=== PATIENT | female | born 1935 | race Caucasian/White ===

== ENCOUNTER 2016-04-06 17:46 | Emergency (ER) | payer MEDICARE ==
[~2016-04-06 17:46] MED LIST: ALLOPURINOL300 MG; LIPITOR40 MG; NAPROSYN500 MG PO; QUINAPRIL20 MG; SYNTHROID0.112 MG
[2016-04-06] MEDS ORDERED: HYDROCODON-ACE118 ML PO (20:19)
[2016-04-29] MEDS ORDERED: CARVEDILOL3.125 MG PO (15:00)
[2016-04-29] MEDS ORDERED: MELOXICAM7.5 MG PO (15:00)
[2016-04-29] MEDS ORDERED: LOVASTATIN10 MG PO (15:00)
[2016-04-29] MEDS ORDERED: COREG3.125 MG PO (16:47)
[2016-04-29] MEDS ORDERED: NORVASC5 MG PO (16:47)
[2016-04-29] MEDS ORDERED: QUINAPRIL20 MG PO (16:47)
== END 2016-04-06 20:18 | disposition home or self-care (01) ==
LOC: ED 17:46
DX: T18.108A Unspecified foreign body in esophagus causing other injury, initial encounter (principal); I10 Essential (primary) hypertension; K22.2 Esophageal obstruction; G89.29 Other chronic pain; M54.5 Low back pain; Y92.9 Unspecified place or not applicable

== ENCOUNTER 2016-12-18 23:19 | Inpatient (IN) | payer MEDICARE ==
[~2016-12-18] VITALS: Ht 160 cm; Wt 64.0 kg
--- NOTE | ~2016-12-18 | PR ---
[place], [place] PROGRESS NOTE NAME: SHARMILA CARRANZA UNIT #: [id number] ROOM: 409 DOCTOR: ERIN SAUL MD BIRTHDATE: [birth year] DOS: SUBJECTIVE: The patient is doing fine without any complaints this morning. She is feeling much better. OBJECTIVE: LUNGS: Diminished breath sounds, clear. HEART: Regular. ABDOMEN: Obese, soft, nontender. EXTREMITIES: Without any edema. ASSESSMENT AND PLAN: 1. Polymyalgia rheumatica, the pain is much better this morning. Rheumatoid panel is negative. Rheumatoid factor slightly positive, but the CCP is normal, so this ruling out rheumatoid arthritis. Echocardiogram shows normal LV function. 2. Chest pain with elevated troponin with negative echocardiogram. 3. Benign hypertension, controlled. I did discuss with the patient about starting physical therapy at home. She agreed, so visiting nurses will be consulted. ERIN SAUL MD CM:PNTRANS 38 ERIN SAUL MD 12/24/16 2238 interface
--- NOTE | ~2016-12-18 | CON ---
[place], [place] REPORT OF CONSULTATION NAME: SHARMILA CARRANZA UNIT #: [id number] ROOM: 409 DOCTOR: LETY CORTEZ,JUNE BIRTHDATE: [birth year] DOS: 12/20/2016 ADDENDUM MEDICATIONS: Include Coreg, Rocephin, ____, Zocor, Celebrex, Zestril, Norvasc, [place]. MONIKA DANA DAVIDSON CRISSY DRAKE MD CM:CONSTR:REPORT OF CONSULTATION 1418 12/31/16 1513 VITA CHEN MIS.R
--- NOTE | ~2016-12-18 | PR ---
[place], [place] PROGRESS NOTE NAME: SHARMILA CARRANZA UNIT #: [id number] ROOM: 409 DOCTOR: ERIN SAUL MD BIRTHDATE: [birth year] DOS: 12/23/2016 SUBJECTIVE: The patient continues to complain of diffuse aches and pains. Denies any chest pains, palpitations or shortness of breath. OBJECTIVE: VITAL SIGNS: Graphic trend shows blood pressure of 170/88, pulse of 72, respirations 20, temperature 98.2. LUNGS: Diminished breath sounds, clear. HEART: Regular. ABDOMEN: Obese, soft. EXTREMITIES: Without any edema. ASSESSMENT AND PLAN: 1. Polymyalgia rheumatica, most likely responsible for current symptoms of low grade fever, diffuse aches and pains, elevated ESR and CRP. The patient has been placed on IV Solu-Medrol. We will discontinue IV and placed on p.o. prednisone of 40 mg daily. Follow with Rheumatology as an outpatient. 2. Failure to thrive with increased weakness. The patient was advised to go to a rehab center, but she has refused. We will go ahead and arrange for discharge tomorrow on p.o. prednisone and PT, OT. 3. Benign hypertension, controlled. Discussed with the patient's daughter, Maggie Moore. ERIN SAUL MD CM:PNTRANS [id number] ERIN SAUL MD 12/23/16 9870 interface
--- NOTE | ~2016-12-18 | PR ---
[place], [place] PROGRESS NOTE NAME: SHARMILA CARRANZA UNIT #: [id number] ROOM: 409 DOCTOR: ERIN SAUL MD BIRTHDATE: [birth year] DOS: 12/22/2016 SUBJECTIVE: The patient continues to complain of diffuse aches and pains. She denies having any chest pains or palpitations, does not have any dizziness or lightheadedness. PHYSICAL EXAMINATION: GENERAL: She is awake and alert and oriented. VITAL SIGNS: Blood pressure is 116/60, pulse of 66, respirations 20, temperature 97.9. LUNGS: Clear. HEART: Regular. ABDOMEN: Obese, soft, nontender. EXTREMITIES: Without any edema. ASSESSMENT AND PLAN: 1. This is a patient who presented with fever and abdominal pain. Urine culture and blood cultures were done, so far no infections can be found. 2. Diffuse myalgias and arthralgias with elevated ESR and CRP, most likely has underlying polymyalgia rheumatica. The patient is placed on IV steroids. 3. Benign hypertension, controlled. 4. Adult failure to thrive. PT/OT has been consulted. We will consider short-term rehab placement. ERIN SAUL MD CM:PNTRANS 27 ERIN SAUL MD 12/23/16 0051 interface
--- NOTE | ~2016-12-18 | PR ---
[place], [place] PROGRESS NOTE NAME[id number] UNIT #: [id number] ROOM: 409 DOCTOR: JASMEET EVANS,JANE BIRTHDATE: [birth year] DOS: 12/21/2016 SUBJECTIVE: The patient is completely flat in bed, continues to feel tired, completely asymptomatic. No specific cardiac complaint, no chest pain, no symptomatic palpitation. OBJECTIVE: VITAL SIGNS: Blood pressure 124/64, heart rate 74, respiratory rate of 14, temperature 98.2. NECK: Good upstroke, no bruit. HEART: S1, S2 with no rub. LUNGS: Clear to auscultation. EXTREMITIES: Lower extremities, no edema. LABORATORY DATA: Sed rate 70, white count 4.1, hemoglobin 12.6. D-dimer was 1.[address] of the chest. CRP of 17. Potassium was not done today. Troponin is still slightly elevated. ASSESSMENT AND PLAN: On presentation what looks like an upper respiratory infection in a patient who is showing a cardiac trend that could be a non-STEMI type 2. The patient though denies any specific cardiac complaint. For that, we would continue to manage her conservatively, especially in view of elevated sed rate and CRP. I agree with Dr. Fleming, who may workup for possible autoimmune disease. We will await the results of the echocardiogram in a.m. For now, I will hold on any further titration of the patient's medication. I will continue with Coreg at 12.5mg 1 tablet p.o. b.i.d. Consider increased activity as noted in my consultation. We will consider ischemic workup later on after patient's recovery from this bout of illness. JANE ALAMO MD CM:PNTRANS [id number] JANE ALAMO MD 01/12/17 0812 interface
--- NOTE | ~2016-12-18 | CON ---
[place], [place] REPORT OF CONSULTATION NAME: SHARMILA CARRANZA UNIT #: [id number] ROOM: 409 DOCTOR: VIDAL EVANS,CRISSY Jaramillo BIRTHDATE: [birth year] DOS: 12/20/2016 ADDENDUM I agree with the above plan as described after reviewing labs, radiographs and microbiology probably the patient clinically and adjust accordingly. CRISSY DRAKE MD CM:CONSTR:REPORT OF CONSULTATION 0417 12/22/16 1320 interface
--- NOTE | ~2016-12-18 | PR ---
[place], [place] PROGRESS NOTE NAME: SHARMILA CARRANZA UNIT #: [id number] ROOM: 409 DOCTOR: ERIN ASUL MD BIRTHDATE: [birth year] DOS: SUBJECTIVE: The patient is complaining of diffuse aches and pains. She does not feel very good at all. She is not able to tell me exactly where the pain is, but states it is all over her body. OBJECTIVE: VITAL SIGNS: Blood pressure is 124/64, pulse of 74, respirations 14, temperature 98.2. LUNGS: Diminished breath sounds, clear. HEART: Regular. ABDOMEN: Obese, soft, nontender this morning. EXTREMITIES: Without any edema. LABORATORY DATA: Urine culture shows no bacterial growth. Rapid flu testing was negative. CT of the abdomen and pelvis was negative. CT of the chest did not show any pneumonia. No other labs available this morning. WBC count yesterday was 4.1. ASSESSMENT AND PLAN: 1. Fever of unknown etiology, possible viral since cultures have all come back negative. 2. Rule out inflammatory process like polymyalgia rheumatica. ESR, CRP have been ordered along with rheumatoid panel. 3. Benign hypertension, controlled. 4. Chronic low back pain from underlying degenerative joint disease. Continue pain medications. No new changes made. ERIN SAUL MD CM:PNTRANS 0725 1507 ERIN SAUL MD 12/21/16 1506 interface
--- NOTE | ~2016-12-18 | DS ---
[place], [place] DISCHARGE SUMMARY NAME: SHARMILA CARRANZA UNIT #: [id number] ROOM: 409 DOCTOR: ERIN SAUL MD BIRTHDATE: [birth year] DOS: 12/24/2016 DIAGNOSES: 1. Polymyalgia rheumatica. The patient to have serial ESR and CRP as an outpatient and adjustments in prednisone will be made. 2. Fever, possibly related to the autoimmune disease. Flu was ruled out. Urine culture was negative. 3. Chronic low back pain, controlled. 4. Benign hypertension. 5. Elevated enzymes. Cardiology consultation was obtained. CT of the chest was negative. Echocardiogram was normal. This is noncardiac. 6. Failure to thrive. The patient to have visiting nurses at home for PT/OT. MEDICATIONS: New prescription given was prednisone 40 mg daily, carvedilol 3.125 twice daily, lovastatin 10 daily, quinapril 20 daily, amlodipine 5 daily, Celebrex 100 mg twice a day, [place] 7.5 q. 4 hours. HOSPITAL COURSE: The patient is very well known to us. an 81-year-old who comes in with complaints of abdominal pain and fever. The patient then started having pain diffusely all over. The patient had a Cardiology consultation as well as Infectious Disease consultation. Initial thought was that this patient had UTI. Cultures were drawn and IV antibiotics were started. Cultures have come back negative. The flu titer was also negative. The patient continued to complain of abdominal pain, back pain and leg pains. Inflammatory workup was initiated. ESR and CRP extremely high, rest of the rheumatoid panel was negative. She was started on high dose of prednisone, which has helped with the pain. She also had slightly elevated troponin with a negative CTA as well as a negative echocardiogram. Classification Control Clerk does not feel this is a cardiac problem involved. The patient is relatively stable after the addition of prednisone. Her pain is much better controlled. The plan is to discharge her to home today to continue PT, OT at home. [place], [place] DISCHARGE SUMMARY NAME: SHARMILA CARRANZA UNIT #: [id number] ROOM: 409 DOCTOR: ERIN SAUL MD BIRTHDATE: [birth year] ERIN SAUL MD CM:LAZ 09 52 ERIN SAUL MD 12/24/161750 interface
--- NOTE | ~2016-12-18 | WRIGHTHP ---
[place], [place] PATIENT HISTORY AND PHYSICAL EXAM NAME: SHARMILA CARRANZA [facility] #: [id number] UNIT #: [id number] ROOM: 409 DOCTOR: ERIN SAUL MD BIRTHDATE: [birth year] DOS: 12/19/2016 HISTORY OF PRESENT ILLNESS: The patient is 81 years old. The patient is very well known to us. The patient states that for the last 3-4 days, she has had cold-like symptoms, runny nose, sinus congestion and just weakness and tiredness. She called the office yesterday. Z-CHARITY was prescribed, but she never got that filled, but she continued to get weak during the night and so her family brought her to the Emergency Room. She also complains of some pain across the lower part of the abdomen and chills. She denies having any abdominal pain, nausea, any emesis. The patient does not have any nausea, emesis or any abdominal pain. Does not have any chest pains or palpitations. PAST MEDICAL HISTORY: Significant for; 1. Chronic back pain. 2. Benign hypertension. 4. Mixed hyperlipidemia. 5. Hypothyroidism. MEDICATIONS: That she is on are; amlodipine 5 daily, Coreg 3.125 twice a day, Celebrex 100 b.i.d., [place] 7.5 q. 4, lovastatin 10, quinapril 20 daily. SOCIAL HISTORY: Nonsmoker, does not use any alcohol. PHYSICAL EXAMINATION: GENERAL: The patient is awake and alert and oriented. VITAL SIGNS: Blood pressure is 120/72, pulse of 74, respirations 20, temperature 103 which is the T-max. LUNGS: Diminished breath sounds. No wheezes, rales or rhonchi heard. HEART: Regular. ABDOMEN: Obese, soft, some tenderness across the suprapubic area. EXTREMITIES: Without any edema, awake and alert and oriented. No neurological deficits. LABORATORY DATA: At the time of admission, chest x-ray which is unremarkable, no evidence of any pneumonia is seen. Serum amylase and lipase was normal. White cell count as WBC count of 4.3, hemoglobin 12.4, hematocrit 35.4, platelets 241. Comprehensive glucose 106, BUN 13, creatinine 0.46, sodium 129, potassium 3.6, chloride 92, bicarbonate 25. ASSESSMENT AND PLAN: 1. Urinary tract infection with possibility of sepsis. Urine culture and blood cultures have been sent in the Emergency Room. The patient has been placed on IV fluids and IV antibiotics. 2. Benign hypertension, controlled. Continue home meds. 3. Chronic back pain. Continue pain medications. [place], [place] PATIENT HISTORY AND PHYSICAL EXAM NAME: SHARMILA CARRANZA UNIT #: [id number] ROOM: [facility] DOCTOR: ERIN SAUL MD BIRTHDATE: [birth year] ERIN SAUL MD CM:HISPHYS:PATIENT HISTORY AND PHYSICAL EXAMINATION 1153 1213 ERIN SAUL MD 01/06/17 0912 interface
--- NOTE | ~2016-12-18 | CON ---
[place], [place] REPORT OF CONSULTATION NAME: SHARMILA CARRANZA UNIT #: [id number] ROOM: 409 DOCTOR: JASMEET EVANSJANE BIRTHDATE: [birth year] DOS: 12/20/2016 REQUESTING PHYSICIAN: Dr. Katy Fleming. REASON FOR CONSULTATION: Elevated troponin. ASSESSMENTS: 1. Current presentation with upper respiratory like symptoms for the past 4 days. 2. Dysuria with evidence of urinary tract infection. 3. Fevers with maximum at 103 on presentation. 4. Elevated troponin with no reported cardiac complaints. 5. Hypertension. 6. Hyperlipidemia. 7. Previous history of tobacco abuse. PLAN: 1. Agree on heparin anticoagulation only for the first 24 hours. 2. Enteric-coated aspirin 81 mg. 3. Increase Coreg to 6.25 mg b.i.d. 4. Echocardiogram. 5. A stress test will be done after the patient recovery from current septic episode. 6. Early followup in our clinic within 2-4 weeks upon discharge. 7. Call at any time for chest pains. HISTORY AND PHYSICAL: The patient is a pleasant 81-year-old female unknown to our practice, was referred by Dr. Fleming for further evaluation of elevated troponin. Apparently, the patient presents to the hospital what looks like an upper respiratory infection even though there was found to have a urinary tract infection. Temperature on presentation was 103. At no time, the patient had any complained of chest pain, chest pressure, heaviness or tightness. No jaw pain, no left arm pain, no back pain. She has been active. She still drives and goes grocery shopping without any provoked cardiac complaints. No shortness of breath. No dyspnea on exertion. Prior to this presentation, she sleeps on one pillow with no reported PND, orthopnea or pedal edema. Never had any dizziness, lightheadedness or near syncope. Maintain good appetite. No weight loss. After elevated troponin, she had negative CT of the chest for PE and also after enteric coated aspirin on the plan, please check CPK and CK-MB. PAST MEDICAL HISTORY: As detailed in my assessment. SOCIAL HISTORY: The patient quit smoking many years ago, but she cannot remember exactly how long ago with no history of alcohol or illicit drug abuse. FAMILY HISTORY: Family history of heart disease given to her father who at age 72 of myocardial infarction. CURRENT MEDICATIONS: Coreg, Tylenol, Rocephin, Celebrex, Zocor, lisinopril and amlodipine. [place], [place] REPORT OF CONSULTATION NAME: SHARMILA CARRANZA UNIT #: [id number] ROOM: [facility] DOCTOR: JANE ALAMO MD BIRTHDATE: [birth year] ALLERGIES: There are no known drug allergies. REVIEW OF SYSTEMS: Currently, the patient denies any headache, diplopia or blurry vision. No fever, no chills, no night sweats. No abdominal pain, no bright red blood per rectum or tarry stools. The patient admits to joint pain, no muscular pain. No anxiety, no depression. No polyuria, no polydipsia, no skin rash. Review of other systems have been negative. PHYSICAL EXAMINATION: GENERAL: The patient is alert, oriented x3, quite pleasant. She is flat in bed, does not appear in distress, reporting significant improvement since admission on current medical regimen. VITAL SIGNS: Blood pressure 126/70, heart rate 76, respiratory rate of 18, temperature 98.2 and T-max is 102.6. HEENT: Extraocular muscles intact. Pupils equal, round and reactive to light. Conjunctivae, no pallor. Throat, no petechiae. NECK: Good carotid upstroke. Unable to appreciate any bruit, no lymphadenopathy, no thyromegaly. HEART: S1, S2 with a systolic ejection murmur on right upper sternal border. No rub, no retrosternal heave, holosystolic murmur at the left lower sternal border. No rub. No retrosternal border. CHEST AND BACK: With deformities. LUNGS: Clear to auscultation. Good air movement. No wheezing or rales. ABDOMEN: Obese, soft, nontender, present bowel sounds, no masses, no bruits. LOWER EXTREMITIES: There is no edema with faint distal pulses. NEUROLOGIC: Grossly nonfocal. SKIN: No significant rash. LABORATORY DATA: EKG showing sinus rhythm, right bundle branch block, left anterior fascicular block. Chest x-ray showing no evidence of any significant infiltrate, slight mild vascular congestion. LABORATORY DATA: White count 4.3, hemoglobin 12.4. INR is 1.0. D-dimer 1.96. Potassium 4.1, BUN 6, creatinine 0.49. GFR more than 60%. Troponin 0.153, 0.16 and 0.12. Albumin 2.4. [place], [place] REPORT OF CONSULTATION NAME: SHARMILA CARRANZA UNIT #: [id number] ROOM: 409 DOCTOR: JANE ALAMO MD BIRTHDATE: [birth year] JANE ALAMO MD CM:CONSTR:REPORT OF CONSULTATION 1129 01/06/17 0920 interface
--- NOTE | ~2016-12-18 | PR ---
[place], [place] PROGRESS NOTE NAME: SHARMILA CARRANZA UNIT #: [id number] ROOM: [facility] DOCTOR: ERIN SAUL MD BIRTHDATE: [birth year] DOS: SUBJECTIVE: The patient during the night developed some chills and rigor and pulse ox dropped and she was transferred to the ICU. D-dimer was elevated at 1.96. Lactic acid was normal. CT angiogram was performed, which showed no evidence of PE. This morning, the patient mostly complains of abdominal pain and groin pain. She does not have any chest pains or palpitations, does not have any nausea, any emesis. She has chronic pain and has been taking her pain medications. OBJECTIVE: GENERAL: Today, she is awake and alert and oriented. VITAL SIGNS: Graphic trend shows blood pressure 118/80, pulse of 89, respirations 20, T-max of 102.6. LUNGS: Diminished breath sounds, clear. HEART: Regular. ABDOMEN: Obese, soft, nontender right now, but the patient states that she gets the tenderness in the groin area in the right lower quadrant at times. EXTREMITIES: Without any edema. LABORATORY DATA: Troponin, the first set was 0.153, the second set is 0.164. Urine culture shows no bacterial growth. CT of the chest shows no evidence of pneumonia or PE. ASSESSMENT AND PLAN: 1. The patient with high grade fever, was admitted with diagnosis of urinary tract infection, but urine culture is negative. Since the patient is having a lot of right lower quadrant abdominal pain, we will go ahead and arrange for a CT of the abdomen and pelvis and ID consult was obtained because of the continued high grade fever. 2. Hypoxemia. This most likely was not a true oxygen drop, but the patient has significant chills and rigor and they were not able to measure the pulse ox properly. Her pulse ox is maintained normal right now. Troponin is of concern. IV heparin protocol was started. I will continue until all troponins come back. A Cardiology consultation will be obtained. An echocardiogram will be ordered. 3. Benign hypertension, controlled. The patient had a stress test about a year ago, which was negative. 4. Chronic pain from osteoarthritis and low back pain. The patient is on pain medications, which are being continued. [place], [place] PROGRESS NOTE NAME: SHARMILA CARRANZA UNIT #: [id number] ROOM: [facility] DOCTOR: ERIN SAUL MD BIRTHDATE: [birth year] ERIN SAUL MD CM:TR[place]ON 0739 1619 ERIN SAUL MD 12/20/16 1618 interface
--- NOTE | ~2016-12-18 | CON ---
[place], [place] REPORT OF CONSULTATION NAME: SHARMILA CARRANZA UNIT #: [id number] ROOM: 409 DOCTOR: LETY CORTEZ,JUNE BIRTHDATE: [birth year] DOS: 12/20/2016 HISTORY OF PRESENT ILLNESS: The patient is a pleasant 81-year-old female who is alert and oriented. She gives a history of having been sick for 2 or 3 days at home with myalgias, fevers, chills, just not feeling well and tired. No respiratory symptoms. No cough. She had slight shortness of breath the night she came in, possibly with her fever. No upper respiratory congestion or drainage. No dysuria or frequency. She was diagnosed with possible UTI upon admission and started on Rocephin. ID was consulted for continued fever. She did have a temperature and chills last night of 102.6. Troponin was also elevated. Her WBCs were normal on admission and currently they are 4.1. Her blood cultures are negative. Urine cultures are negative. Her urinalysis had +2 leukocyte esterase and wbc's 21-30 per high powered field, negative for nitrites. She had CT of the abdomen and pelvis as well as a CT of the chest which did not demonstrate any infiltrates and the abdomen and pelvis had no acute process. PAST MEDICAL HISTORY: As above, as well as chronic back pain, hypertension, hyperlipidemia, hypothyroidism. SOCIAL HISTORY: Lives at home. Nonsmoker, nondrinker. No illicit drug use. CURRENT MEDICATIONS: Include Coreg, Rocephin, aspirin, Zocor, Celebrex, Zestril, Norvasc, [place]. RADIOLOGY AND IMAGING: As reviewed above. I did review the films of the CT of the chest. LABORATORY DATA: WBC is 4.1, platelets 303. BUN 6, creatinine 0.49. LFTs within normal limits. Albumin 2.4. REVIEW OF SYSTEMS: As above in history of present illness. Denies any rash or itch. Apparently, she had temperature of 102.6 at 4:00 a.m., states she did have some chills at night, but was unaware that she had a fever. No cough or shortness of breath. No nausea, vomiting or diarrhea. No dysuria or frequency prior to admission or now. No peripheral edema. Further review of systems is unremarkable. FAMILY MEDICAL HISTORY: Significant for CVA, diabetes and COPD. PHYSICAL EXAMINATION: VITAL SIGNS: Temperature 98.2, pulse 75, respirations 16, BP 114/75. GENERAL: An 81-year-old female, alert and oriented, in no acute distress. HEAD, EYES, EARS, NOSE AND THROAT: Normocephalic. No thrush. LUNGS: Clear to auscultation bilaterally. Respirations even and unlabored. HEART: Regular rhythm. No murmur appreciated. ABDOMEN: Soft, positive bowel sounds, nontender, nondistended. EXTREMITIES: No edema, deformity or cyanosis. SKIN: Warm, dry, free of rashes. [place], [place] REPORT OF CONSULTATION NAME: SHARMILA CARRANZA UNIT #: [id number] ROOM: [facility] DOCTOR: LETY CORTEZJUNE BIRTHDATE: [birth year] ASSESSMENT AND PLAN: Given her fever and myalgias, lack of urinary symptoms, she most likely has influenza. We will do a respiratory viral panel as well as rapid influenza, stop the Rocephin. Case discussed with Dr. Crissy Drake. We will order Tamiflu until the results of her influenza are back. MONIKA DANA DAVIDSON CRISSY DRAKE MD CM:CONSTR:REPORT OF CONSULTATION 1408 12/31/16 1513 interface
[~2016-12-18 23:19] MED LIST changes: +CARVEDILOL3.125 MG PO; +COREG3.125 MG PO; +HYDROCODON-ACE118 ML PO; +LOVASTATIN10 MG PO; +MELOXICAM7.5 MG PO; +NORVASC5 MG PO; +QUINAPRIL20 MG PO
[2016-12-18 23:21] VITALS: BP 129/96
--- NOTE | 2016-12-18 23:28 | NUR ---
PATIENT PO2 90% ROOM AIR PT PLACED ON AT 3LPM VIA NC, PULSE OX 93%
[2016-12-19] VITALS (7 sets, daily range): BP systolic 92–137; BP diastolic 55–79
[2016-12-19 00:08] LABS: HEMATOCRIT 35.4 % (37.0-47.0); HEMOGLOBIN 12.4 g/dl (12.0-16.0); MEAN CELL VOLUME 99.2 fl (81.0-99.0); MEAN CORPUSCULAR HGB 34.7 pg (27.0-31.0); MEAN PLATELET VOLUME 8.7 fl (9.6-12.3); PLATELET COUNT AUTOMATED 241 10*3/uL (130-400); RED BLOOD COUNT 3.57 10*6/uL (4.10-5.10); RED CELL DISTRI WIDTH 12.8 % (0-14.5); WHITE BLOOD COUNT 4.3 10*3/uL (4.8-10.8)
[2016-12-19 00:23] LABS: ALBUMIN 2.6 gm/dl (3.1-4.5); ALKALINE PHOSPHATASE 198 U/L (45-117); BUN 13 mg/dl (7-24); CHLORIDE 92 mmol/L (98-107); CREATININE 0.46 mg/dL (0.55-1.02); POTASSIUM 3.6 mmol/L (3.5-5.1); SGOT/AST 26 IU/L (3-35); SGPT/ALT 22 U/L (12-78); SODIUM 129 mmol/L (136-145)
[2016-12-19 00:31] LABS: PLATELET SUFFICIENCY NORMAL (NORMAL); TOTAL CELLS COUNTED 100 #CELLS
[2016-12-19 00:32] LABS: TOXIC GRANULATION SLIGHT
[2016-12-19 00:39] LABS: LIPASE 66 U/L (73-393)
[2016-12-19] MEDS ORDERED: CELEBREX100 MG PO (01:29)
[2016-12-19] MEDS ORDERED: HYDROCODON-ACE1 EAC1 PO (01:30)
--- NOTE | 2016-12-19 01:31 | NUR ---
PATIENT IN BED STATES NO CHANGE IN PAIN OR DISCOMFORT, BED IN LOWEST POSITON BED RAILS UP X 2 CALL CAMACHO IN REACH
--- NOTE | 2016-12-19 01:32 | NUR ---
PATIENT STILL UNABLE TO GIVE URINE SPECIMEN
--- NOTE | 2016-12-19 02:04 | NUR ---
PATIENT PROVIDED BEDSIDE COMMODE PER REQUEST WAS ABLE TO USE WITH ASSISTANCE MOVING, PT PROVIDED URINE SAMPLE, RETURNED TO BED, BED IN LOWEST POSITION BED RAILS UP X 2 CALL CAMACHO IN REACH
[2016-12-19 02:15] LABS: BILIRUBIN 1+ (NEGATIVE); BLOOD 1+ (NEGATIVE); CLARITY SL CLOUDY (CLEAR); COLOR YELLOW (YELLOW); GLUCOSE NEGATIVE (NEGATIVE); KETONE 1+ (NEGATIVE); LEUKO ESTERASE 2+ (NEGATIVE); NITRITE NEGATIVE (NEGATIVE); SPECIFIC GRAVITY 1.015 (1.005-1.030)
[2016-12-19 02:21] LABS: BACTERIA 2+; EPITHELIAL CELLS 15-20; WBC 21-30 wbc/hpf (0-5)
--- NOTE | 2016-12-19 02:53 | NUR ---
PT TO BE ADMITTED, PT WITH FRAGILE SKIN HOWEVER NO NOTED SKIN TEARS OR WOUNDS ON PT
--- NOTE | 2016-12-19 03:15 | NUR ---
Time: 309 A 81 year old f admitted to 5E under services of DR. KG EVANS,ERIN. Pt. arrived via bed from ER. Chief complaint: groin/pelvic pain x 3 days. BARRETT WOODS
[2016-12-19] MEDS ORDERED: Synthroid,Levo88 MCG PO (03:41)
--- NOTE | 2016-12-19 03:45 | NUR ---
dr dixon contacted, admission orders received
--- NOTE | 2016-12-19 06:00 | NUR ---
slept throughout night with no distress noted. respirations easy. iv fluids maintained. call light within reach. no voiced complaints this shift
--- NOTE | 2016-12-19 08:29 | NUR ---
Shift chart check completed.
--- NOTE | 2016-12-19 08:30 | NUR ---
Charge Coordinator in to talk to patient. Patient states lives at HOME ALONE with . There are 0 steps in the home. Physician: DR SAUL Pharmacy: [facility] services: NONE Patient's level of ADLs: MINIMAL ASSIST Patient has working utilities: YES DME: NONE Follow-up physician's appointment after d/c: PREFERS TO MAKE HER OWN APPT Does patient want to access PORTAL?: Discharge plan HOME. JENIFER MARTIN STATES SON AND DAUGHTER LIVE NEAR AND ARE VERY HELPFUL.
--- NOTE | 2016-12-19 10:46 | NUR ---
COMPLAINS OF GENERALIZED PAIN, NORCO GIVEN. SEE MAR. WILL MONITOR FOR EFFECTIVENESS.
--- NOTE | 2016-12-19 11:11 | NUR ---
PT DID NOT WANT AM DOSE OF CELEBREX SHE LIKES TO TAKE FIRST THING IN THE MORNING AND WITH DINNER. PHARMACY SENT MESSAGE TO CHANGE ORDER. PT DID NOT WANT TO TAKE AT THE SAME TIME THE NORCO.
[2016-12-20] VITALS (7 sets, daily range): BP systolic 114–150; BP diastolic 70–90
--- NOTE | 2016-12-20 03:33 | NUR ---
RAPID REPSONSE CALLED D/T O2 AT 57%, PT AA&OX3 AT THIS TIME, PT PLACED ON NON REBREATHER PULSE OX AT 97%, AXILLARY TEMP 100.1. AND AT BEDSIDE, LABS ORDERED, STAT CHEST XRAY ORDERED AND EKG. PT IN STABLE CONIDITION. NOTIFIED OF PT'S CONDITION, NEW ORDER TO TRANSFER TO ICU
--- NOTE | 2016-12-20 04:15 | NUR ---
PT RECEIVED IN ICU POST RAPID RESPONSE. PT AWAKE, ALERT, ORIENTED. WITHOUT DISTRESS.
[2016-12-20 04:25] LABS: HEMATOCRIT 37.8 % (37.0-47.0); HEMOGLOBIN 12.6 g/dl (12.0-16.0); MEAN CORPUSCULAR HGB 34.7 pg (27.0-31.0); MEAN CORPUSCULAR HGB CONC 33.3 g/dl (33.0-37.0); MEAN PLATELET VOLUME 8.9 fl (9.6-12.3); PLATELET COUNT AUTOMATED 303 10*3/uL (130-400); RED BLOOD COUNT 3.63 10*6/uL (4.10-5.10); RED CELL DISTRI WIDTH 13.2 % (0-14.5); WHITE BLOOD COUNT 4.1 10*3/uL (4.8-10.8)
[2016-12-20 04:26] LABS: MEAN CELL VOLUME 104.1 fl (81.0-99.0)
[2016-12-20 04:38] LABS: ALBUMIN 2.4 gm/dl (3.1-4.5); ALKALINE PHOSPHATASE 181 U/L (45-117); BUN 6 mg/dl (7-24); CHLORIDE 100 mmol/L (98-107); CREATININE 0.49 mg/dL (0.55-1.02); POTASSIUM 4.1 mmol/L (3.5-5.1); SGOT/AST 35 IU/L (3-35); SGPT/ALT 29 U/L (12-78); SODIUM 135 mmol/L (136-145); TOTAL PROTEIN 7.3 gm/dL (6.4-8.2)
[2016-12-20 04:40] LABS: TOTAL CELLS COUNTED 100 #CELLS
[2016-12-20 04:41] LABS: PLATELET SUFFICIENCY NORMAL (NORMAL)
[2016-12-20 04:43] LABS: TROPONIN I 0.153 ng/ml (<0.045)
[2016-12-20 04:45] LABS: BURR CELLS FEW; TOXIC GRANULATION SLIGHT
--- NOTE | 2016-12-20 04:45 | NUR ---
DR ROY NOTIFIED OF ELEVATED TROPONIN AND D DIMER TESTING THAT WAS ORDERED AND DRAWN DURING RAPID RESPONSE.
--- NOTE | 2016-12-20 05:04 | NUR ---
DR SAUL NOTIFIED OF PT CONDITION, ELEVATED TROPONIN, CXR RESULTS, AND DDIMER RESULTS. AWARE THAT DR ROY ORDERED CTA AND SHE IS AGREEABLE. TYLENOL GIVEN ORDERED FOR TEMP 102.6. ADDITIONAL TROPONINS AND ANTICOAGULATION ORDERS RECEIVED. DR ROY REMAINS AT BEDSIDE.
--- NOTE | 2016-12-20 05:41 | NUR ---
PT WAS ACCOMPANIED BY THIS RN TO CT SCAN FOR CTA AND IS BACK NOW. HR REMAINS 80S, PULSE OX 98%, RR 21/MIN. TOLERATED WELL.
[2016-12-20 05:53] LABS: ACT PARTIAL THROMBO TIME 27.4 SECONDS (20.8-31.5)
--- NOTE | 2016-12-20 10:51 | NUR ---
CT ABD COMPLETED DTR AT BEDSIDE THIRD TRO CALLED TO DR SAUL
[2016-12-20 11:37] LABS: CKMB 1.1 ng/ml (0.5-3.6)
--- NOTE | 2016-12-20 13:05 | NUR ---
NORCO EFFECTIVE FOR BODY/MUSCLE ACHES PT UP TO BSC SEVERAL TIMES CT PREP HAS GONE THRU HER PT SOMEWHAT IN BETTER SPIRITS AND WILLING TO GET UP MORE DR ALAMO HAS SEEN PT AND IMPLIMENTED NEW ORDERS
--- NOTE | 2016-12-20 14:46 | NUR ---
BACK TO BED AFTER EATING LUNCH IN THE RECLINER
--- NOTE | 2016-12-20 16:55 | NUR ---
SERENE FOR GENERALIZED BACK/JOINT PAIN
--- NOTE | 2016-12-20 19:01 | NUR ---
24 HR chart check completed.
[2016-12-21] VITALS: BP 150/84
--- NOTE | 2016-12-21 00:09 | NUR ---
C/O 6/10 PAIN ALL OVER/MUSCLE PAIN. MEDICATED WITH PRN NORCO ORDERED AND PER PATIENT REQUEST. WILL MONITOR FOR EFFECTIVENESS.
--- NOTE | 2016-12-21 01:00 | NUR ---
PATIENT ASLEEP. NO SIGNS OF PAIN. NORCO EFFECTIVE.
[2016-12-21 04:00] VITALS: BP 124/64
--- NOTE | 2016-12-21 05:56 | NUR ---
NORCO GIVEN PER PATIENT REQUEST. C/O 09/15 LOWER BACK PAIN.
--- NOTE | 2016-12-21 06:53 | NUR ---
PATIENT ASLEEP. NO SIGNS OF PAIN. NORCO EFFECTIVE.
[2016-12-21 08:00] VITALS: BP 152/84
[2016-12-21 12:00] VITALS: BP 119/61
--- NOTE | 2016-12-21 14:52 | NUR ---
MEDICATED WITH NORCO FOR /CO LOWR BACK PAIN. PATIENT ENCOURAGED TO STAY IN THE CHAIR UNTIL AT LEAST 4PM. EXPLAINED NEED TO GET OUT OF BED TO PREVENT PNEUMONIA.
[2016-12-21 16:00] VITALS: BP 151/74
--- NOTE | 2016-12-21 16:00 | NUR ---
PT RESTING UP IN CHAIR, NO APPARENT DISTRESS. PT STATES GENERALIZED ACHING AND "JUST DOESN'T FEEL WELL". PT DENIES ANY NEEDS AT THIS TIME. CALL LIGHT WITHIN REACH.
[2016-12-21 20:00] VITALS: BP 153/81
--- NOTE | 2016-12-21 20:15 | NUR ---
PT RESTING QUIETLY IN BED. ASSISTED TO BATHROOM VIA WALKER. PT STATES THAT PRN NORCO WAS BEGINNING TO BECOME EFFECTIVE FOR PAIN RELIEF. RATES PAIN 5/10 WITH MOVEMENT ONLY. PT CONTINUES TO HAVE GENERAL WEAKNESS. ASSISTED BACK TO BED. CALL LIGHT IN REACH.
[2016-12-22] VITALS: BP 145/64
--- NOTE | 2016-12-22 01:35 | NUR ---
PT RESTING QUIETLY IN BED AT THIS TIME. PRN PAIN MED EFFECTIVE FOR PAIN RELIEF.
--- NOTE | 2016-12-22 01:36 | NUR ---
24 HR chart check completed.
[2016-12-22 08:00] VITALS: BP 150/76; BP 168/80
--- NOTE | 2016-12-22 11:01 | NUR ---
PHYSICAL THERAPY PAtient evalauted on 4, full evalaution to follow. Continue with PT as per plan of care with fall, acute onset hip/groin and thigh pain and acute debility precautions. Qualifies for SNF but adamantly refuses. Will require 24/ family assist prn at home and complete home health services. PAtient is moderate complexity via chart review, tests and evaluation: 20881. thank you for this referral. Yolanda Julien,PT
--- NOTE | 2016-12-22 11:38 | NUR ---
Received order for snf, discussed this with daughter Maggie LIANG, who stated patient will not be going to snf, she will be going home. She has family support.
[2016-12-22 12:00] VITALS: BP 168/78
--- NOTE | 2016-12-22 12:26 | NUR ---
PHYSICAL THERAPY Nohemy seen this PM 1:1 for her therapy session and said that she would try. Pt with acute debility precautions. Transfer sit/stand MOD A X 1, with standing balance with wheeled walker. Gait 60' X 1, MOD WEBLOGIC ADMINISTRATOR X 1, with W/W, cueing for gait safety and her turns Pt back up in her bedside chair sitting rest, HR 80 BPM. End with act Ex to bilateral LE X 12 reps each with rest as needed and cueing for each Ex. Pt having C/O hip and along bilateral IT ban. Went over with Pt on her gait safety and transfers. Pt up in her bedside chair call light and phone lunch coming in . KATERIN PHILLIPS PLASTIC SURGERY SPECIALIST.
--- NOTE | 2016-12-22 13:52 | NUR ---
NORCO GIVEN FOR C/O GENERALIZED DISCOMFORT. WILL MONITOR.
[2016-12-22 16:00] VITALS: BP 158/76
--- NOTE | 2016-12-22 16:51 | NUR ---
prn pain med given for 7/10 generalized body aches.
--- NOTE | 2016-12-22 17:44 | NUR ---
PRN PAIN MED EFFECTIVE, PT REPORTS HER PAIN 5/10.
[2016-12-22 20:00] VITALS: BP 164/86
--- NOTE | 2016-12-22 21:11 | NUR ---
MEDICATED WITH PRN NORCO ORDERD FOR C/O GROIN/LEG/AND ARM MUSCLE PAIN RATED AN 8
--- NOTE | 2016-12-22 22:15 | NUR ---
NORCO EFFECTIVE PER PATIENT FOR BODY AND MUSCLE ACHES
[2016-12-23] VITALS: BP 146/62
--- NOTE | 2016-12-23 01:38 | NUR ---
MEDICATED WITH PRN NORCO ORDERED FOR BODY/MUSCLE ACHES AND PAINS RATED AN 8
--- NOTE | 2016-12-23 05:48 | NUR ---
MEDICATED WITH PRN NORCO ORDERED FOR C/O MUSCLE AND BODY ACHES AND PAINS RATED AN 8
[2016-12-23 08:00] VITALS: BP 158/72
--- NOTE | 2016-12-23 08:00 | NUR ---
PATIENT RESTING IN BED. ADMITS TO MUSCLE PAIN ONLY WITH MOVEMENT. STATES THAT THE NORCO SHE RECEIVED THIS MORNING HAS HELPED. VOICES NO OTHER COMPLAINTS. BED IS IN LOW POSITION. CALL LIGHT IS WITHIN REACH.
--- NOTE | 2016-12-23 08:47 | NUR ---
Shift chart check completed.
--- NOTE | 2016-12-23 09:03 | NUR ---
PHYSICAL THERAPY Pt seen this AM and ask to be seen later today. KATERIN PHILLIPS CREDIT PORTFOLIO ADVISOR.
[2016-12-23 09:06] LABS: RHEUMATOID ARTHRITIS FACTOR 14.1 IU/mL (0.0-13.9)
--- NOTE | 2016-12-23 09:33 | NUR ---
NORCO 5/325 GIVEN PER PATIENT REQUEST FOR MUSCLE PAIN RATING AN 8/10.
--- NOTE | 2016-12-23 10:18 | NUR ---
DAUGHTER REQUESTS BSC AND ITZEL TREJO. CHOOSED [facility]. SPOKE WITH ANANT THERE. PAPERWORK AND ORDERS FAXED. ANANT WILL LET ME KNOW IF MEDICARE WILL PAY FOR BOTH AND IF NOT, WHICH ONE IS CHEAPEST FOR FAMILY TO BUY.
--- NOTE | 2016-12-23 10:26 | NUR ---
PHYSICAL THERAPY Back this AM to treat Nohemy, Pt was up in her bedside chair, daughter present. Transfer sit/stand and up on wheeled walker for standing balance CG X 1, no LOB. Followed by gait 95' X 2, CG X 1, no LOB and little cueing for gait, walker, turn safety. Pt back up in her bedside chair, followed by act ex to bilateral LE working to pt's tolerance of marching, LAQ's, and ankle pumps. Pt with phone and call light with slight C/O low back pain. KATERIN PHILLIPS FLUID PUMP OPERATOR.
--- NOTE | 2016-12-23 10:30 | NUR ---
NO COMPLAINTS OF PAIN AT THIS TIME. NORCO EFFECTIVE.
[2016-12-23 12:00] VITALS: BP 170/88
--- NOTE | 2016-12-23 12:05 | NUR ---
PER ANANT FROM [facility], THERE IS A COPAY ON THE WALKER AND MEDICARE WILL NOT PAY FOR THE BSC. SHE WILL CALL PT'S DAUGHTER WITH COPAY INFO AND COST OF BSC.
[2016-12-23 13:08] LABS: ANTI-DSDNA ANTIBODIES 096339 <1 IU/mL (0-9)
--- NOTE | 2016-12-23 13:19 | NUR ---
NORCO 5/325 GIVEN PER PATIENT REQUEST FOR GENERALIZED PAIN RATING AN 8/10.
--- NOTE | 2016-12-23 14:00 | NUR ---
NORCO EFFECTIVE PER PATIENT.
[2016-12-23 16:00] VITALS: BP 173/84
--- NOTE | 2016-12-23 17:07 | NUR ---
NORCO 5/325 GIVEN PER PATIENT REQUEST FOR GENERALIZED PAIN.
[2016-12-23 20:00] VITALS: BP 184/83
[2016-12-23 20:10] VITALS: BP 160/88
[2016-12-23 22:04] LABS: CCP ANTIBODIES IGG/IGA 3 units (0-19)
--- NOTE | 2016-12-23 22:15 | NUR ---
PT RESTING QUIETLY IN BED. NO FURTHER C/O PAIN VOICED. PAIN MED EFFECTIVE FOR PAIN RELIEF.
[2016-12-24] VITALS: BP 147/73
--- NOTE | 2016-12-24 03:00 | NUR ---
PT STATES THAT PAIN MED WAS EFFECTIVE FOR PAIN RELIEF.
[2016-12-24 04:05] LABS: ADENOVIRUS Negative (Negative); INFLUENZA A Negative (Negative); INFLUENZA B Negative (Negative); METAPNEUMOVIRUS Negative (Negative); PARAINFLUENZA 1 Negative (Negative); PARAINFLUENZA 2 Negative (Negative); PARAINFLUENZA 3 Negative (Negative); RHINOVIRUS Negative (Negative); RSV A Negative (Negative); RSV B Negative (Negative)
[2016-12-24 08:00] VITALS: BP 130/82
--- NOTE | 2016-12-24 08:00 | NUR ---
PATIENT IS ALERT AND ORIENTED X 3. RESPITATIONS EASY ON ROOM AIR. LUNGS ARE CLEAR. DENIES COUGH. NORMOACTIVE BOWEL SOUNDS. DENIES N/V/D. LAST BM WAS TODAY. NO EDEMA NOTED. PATIENT SITTING ON THE SIDE OF THE BED. ADMITS TO MUSCLE PAIN. PATIENT MEDICATED BY STUDENT. PATIENT IS BEING CARED FOR BY [employer] STUDENT.
[2016-12-24] MEDS ORDERED: PREDNISONE20 M1 PO (09:07)
--- NOTE | 2016-12-24 10:48 | NUR ---
PHYSICAL THERAPY Nohemy seen this AM 1:1 for her therapy session and had a good morning. Transfer sit/stand CG X 1. Gait with wheeled walker 215' X 1, CGA X 1 no LOB. Pt back up in her bedside chair followed by going over act Ex to bilateral LE of marching, LAQ's, ankle pumps with improvement. KATERIN PHILLIPS COPS.
--- NOTE | 2016-12-24 11:48 | NUR ---
Patient is being discharged to home with home health via [facility]. Faxed order and clincals.
[2016-12-24 12:00] VITALS: BP 148/72
--- NOTE | 2016-12-24 12:07 | NUR ---
NORCO 5/325 GIVEN PER PATIENT REQUEST FOR MUSCLE PAIN RATING AN 8/10.
--- NOTE | 2016-12-24 14:45 | NUR ---
Discharge instructions reviewed with patient/family. Patient receptive and verbalizes understanding. Follow-up care arranged. Written instructions given to patient/family. [place] REMOVED INTACT. MONITOR REMOVED. PATIENT WAS DISCHARGED BY WHEELCHAIR IN CARE OF DAUGHTER. FABIEN HOSKINS
--- NOTE | 2016-12-24 15:01 | NUR ---
PHYSICAL THERAPY CO-SIGN I approve of the Phyical Therapy notes written above. ANDRES NICK PT
== END 2016-12-24 14:45 | disposition home health service (06) | DRG 546 ==
LOC: ED 23:19 → EDHOLD 12-19 02:40 → 4E 12-19 02:40 → 5E 12-19 02:40 → ICCU 12-20 04:41 → 4E 12-21 14:43
PROVIDERS: Emergency Medicine; Internal Medicine; Internal Medicine Cardiovascular Disease; Nurse Practitioner; ADMIT Internal Medicine
DX: M35.3 Polymyalgia rheumatica (principal); R65.10 Systemic inflammatory response syndrome (SIRS) of non-infectious origin without acute organ dysfunction; I35.0 Nonrheumatic aortic (valve) stenosis; N39.0 Urinary tract infection, site not specified; R74.8 Abnormal levels of other serum enzymes; R31.9 Hematuria, unspecified; G89.29 Other chronic pain; I10 Essential (primary) hypertension; M19.90 Unspecified osteoarthritis, unspecified site; M54.5 Low back pain; E78.2 Mixed hyperlipidemia; E03.9 Hypothyroidism, unspecified; R09.02 Hypoxemia; R62.7 Adult failure to thrive; Z53.29 Procedure and treatment not carried out because of patient's decision for other reasons; Z83.3 Family history of diabetes mellitus; Z82.5 Family history of asthma and other chronic lower respiratory diseases; Z82.3 Family history of stroke; Z87.891 Personal history of nicotine dependence; Z82.49 Family history of ischemic heart disease and other diseases of the circulatory system

== ENCOUNTER 2017-01-28 12:56 | Emergency (ER) | payer MEDICARE ==
[~2017-01-28] VITALS: Ht 160 cm; Wt 60.8 kg
[~2017-01-28 12:56] MED LIST changes: +CELEBREX100 MG PO; +HYDROCODON-ACE1 EAC1 PO; +PREDNISONE20 M1 PO; +Synthroid,Levo88 MCG PO
[2017-01-28] MEDS ORDERED: NORCO 5-325 TA1 EACH PO (14:18)
[2017-01-28] MEDS ORDERED: NAPROSYN500 MG PO (14:18)
== END 2017-01-28 14:27 | disposition home or self-care (01) ==
LOC: ED 12:56
DX: S52.502A Unspecified fracture of the lower end of left radius, initial encounter for closed fracture (principal); W18.40XA Slipping, tripping and stumbling without falling, unspecified, initial encounter; Y93.89 Activity, other specified; Y92.89 Other specified places as the place of occurrence of the external cause; Y99.8 Other external cause status

== ENCOUNTER → 2018-04-15 | Outpatient (CLI) | payer MEDICARE ==
[~2018-04-15] MED LIST changes: +NORCO 5-325 TA1 EACH PO
[2018-04-15 19:46] LABS: BASO # 0.1 10*3/uL (0.0-0.1); BASO % 0.7 % (0.0-1.0); EOS # 0.2 10*3/uL (0.0-0.4); EOS % 2.4 % (1.0-4.0); HEMATOCRIT 43.6 % (37.0-47.0); HEMOGLOBIN 15.1 g/dl (12.0-16.0); LYMPH # 1.6 10*3/uL (1.3-4.4); LYMPH % 22.7 % (27.0-41.0); MEAN CELL VOLUME 100.5 fl (81.0-99.0); MEAN CORPUSCULAR HGB 34.8 pg (27.0-31.0); MEAN CORPUSCULAR HGB CONC 34.6 g/dl (33.0-37.0); MEAN PLATELET VOLUME 8.3 fl (9.6-12.3); MONO # 0.6 10*3/uL (0.1-1.0); MONO % 8.6 % (3.0-9.0); NEUT # 4.7 10*3/uL (2.3-7.9); NEUT % 65.2 % (47.0-73.0); PLATELET COUNT AUTOMATED 364 10*3/uL (130-400); RED BLOOD COUNT 4.34 10*6/uL (4.10-5.10); RED CELL DISTRI WIDTH 13.2 % (0-14.5); WHITE BLOOD COUNT 7.1 10*3/uL (4.8-10.8)
[2018-04-15 20:19] LABS: ALBUMIN 3.6 gm/dl (3.1-4.5); ALKALINE PHOSPHATASE 77 U/L (45-117); BUN 8 mg/dl (7-24); CHLORIDE 99 mmol/L (98-107); CHOLESTEROL 235 mg/dL (<200); CREATININE 0.61 mg/dL (0.55-1.02); FREE T4 1.29 ng/dl (0.76-1.46); HDL CHOLESTEROL 71 mg/dl (40-60); LDL CHOLESTEROL 107 mg/dL (9-159); POTASSIUM 4.4 mmol/L (3.5-5.1); SGOT/AST 14 IU/L (3-35); SGPT/ALT 16 U/L (12-78); SODIUM 137 mmol/L (136-145); TOTAL PROTEIN 7.6 gm/dL (6.4-8.2); TRIGLYCERIDES 285 mg/dl (<150); VLDL CHOLESTEROL 57 mg/dL (6-40)
[2018-04-15 20:24] LABS: THYROID STIM HORMONE (HS) 0.925 uIU/ml (0.358-4.75)
[2018-04-15 21:46] LABS: VITAMIN D, 25-HYDROXY 16.6 ng/mL (30-100)
== END | disposition home or self-care (01) ==
LOC: LAB 19:22
PROVIDERS: Internal Medicine
DX: Z13.1 Encounter for screening for diabetes mellitus (principal); Z13.21 Encounter for screening for nutritional disorder; D51.0 Vitamin B12 deficiency anemia due to intrinsic factor deficiency; E55.9 Vitamin D deficiency, unspecified; Z79.899 Other long term (current) drug therapy

== ENCOUNTER 2018-08-05 11:58 | Inpatient (IN) | payer MEDICARE ==
[~2018-08-05] VITALS: Ht 162.5 cm; Wt 62.4 kg
--- NOTE | ~2018-08-05 | PR ---
[place], [place] PROGRESS NOTE NAME: SHARMILA CARRANZA UNIT #: [id number] ROOM: 402 DOCTOR: ERIN SAUL MD BIRTHDATE: [birth year] DOS: 08/07/2018 SUBJECTIVE: The patient says that she had a rough night because of coughing, but she is not having any complaints this morning. OBJECTIVE: VITAL SIGNS: Blood pressure is 149/83, pulse of 67, respirations 16, temperature 98.2. LUNGS: Diminished breath sounds. Very few fine wheezes heard, which is an improvement since admission. HEART: Regular. ABDOMEN: Soft. EXTREMITIES: Without any edema. ASSESSMENT AND PLAN: 1. Acute asthmatic bronchitis, on maximal treatment and improvement is slow, but there is progress. 2. Acute hypoxic respiratory failure, on oxygen supplementation. Awaiting exercise oximetry to assess for home O2. 3. Large aortic aneurysm, the office to make an appointment for her to see CT surgery for aneurysm repair in [facility]. ERIN SAUL MD CM:PNTRANS [phone] ERIN SAUL MD 08/08/18 0138 interface
--- NOTE | ~2018-08-05 | PR ---
[place], [place] PROGRESS NOTE NAME: SHARMILA CARRANZA UNIT #: [id number] ROOM: 402 DOCTOR: ERIN SAUL MD BIRTHDATE: [birth year] DOS: 08/07/2018 SUBJECTIVE: The patient is feeling better, does not have any new complaints. She did have assessment of home O2 when she did not desaturate. Her cough is improved. Shortness of breath is better. OBJECTIVE: VITAL SIGNS: Blood pressure is 148/70, pulse of 89, respirations 20, temperature 98.3. LUNGS: Diminished breath sounds, clear. HEART: Regular. ABDOMEN: Soft. EXTREMITIES: Without any edema. ASSESSMENT AND PLAN: 1. Acute asthmatic bronchitis. The patient's bronchospasm has resolved. 2. Acute hypoxic respiratory failure. Saturations have improved and is up to normal. 3. Benign hypertension, controlled. 4. Thoracic aortic aneurysm, for consultation as an outpatient. ERIN SAUL MD CM:PNTRANS [phone] ERIN SAUL MD 08/08/18 [id number] interface
--- NOTE | ~2018-08-05 | DS ---
[place], [place] DISCHARGE SUMMARY [id number] UN[facility] #: [id number] ROOM: 402 DOCTOR: ERIN SAUL MD BIRTHDATE: [birth year] DOS: DIAGNOSES: 1. Acute asthmatic bronchitis, resolved. 2. Acute hypoxic respiratory failure, improved. HOSPITAL COURSE: The patient is an 83-year-old, very well known to us, who comes in with complaints of cough and shortness of breath. She was admitted to the hospital, was placed on IV antibiotics, breathing treatments. Chest x-ray and CT scan were ordered, which showed no evidence of pneumonia. Her cough and shortness of breath have subsided and therefore, the plan is to discharge her home today. Her oxygenation has improved and assessment of home O2 was performed, which shows that she did not desaturate on walking. The patient will be followed up as an outpatient. She does have a large thoracic aortic aneurysm, which she will need to be followed by CT surgery, appointment will be arranged in [facility]. DISCHARGE MEDICATIONS: The patient's medications are doxycycline 100 mg twice daily, prednisone 5 b.i.d. and breathing treatments with DuoNeb q. 4. ERIN SUAL MD CM:LAZ [phone] ERIN SAUL MD 08/08/18 1521 interface
[2018-08-05 12:20] VITALS: BP 162/88
--- NOTE | 2018-08-05 12:20 | NUR ---
A 83, admitted to , under the services of ERIN Toribio MD with a diagnosis of PNEUMONIA. Chief complaint is SOB, PROD COUGH X1 WEEK. [place] Monitor applied. Initial assessment completed. Vital signs taken and recorded. ERIN TORIBIO MD notified of admission to the unit. Orders received. See assessment for past medical history, medications and allergies. Patient and/or family oriented to unit. [facility] visitation policy reviewed. Clothing/patient valuable form completed. YAAKOV LANGFORD
[2018-08-05] MEDS ORDERED: QUINAPRIL20 MG PO (13:04)
[2018-08-05] MEDS ORDERED: CARVEDILOL6.25 MG PO (13:05)
[2018-08-05] MEDS ORDERED: ALLOPURINOL300 MG PO (13:06)
[2018-08-05] MEDS ORDERED: LEVOXYL88 MCG PO (13:08)
[2018-08-05] MEDS ORDERED: HYDROCODONE-AC1 EAC2 PO (13:10)
[2018-08-05] MEDS ORDERED: MELOXICAM7.5 MG PO (13:13)
[2018-08-05 14:50] LABS: BASO % 0.4 % (0.0-1.0); EOS # 0.2 10*3/uL (0.0-0.4); EOS % 2.6 % (1.0-4.0); HEMATOCRIT 44.8 % (37.0-47.0); HEMOGLOBIN 14.9 g/dl (12.0-16.0); LYMPH # 1.6 10*3/uL (1.3-4.4); LYMPH % 19.9 % (27.0-41.0); MEAN CELL VOLUME 103.5 fl (81.0-99.0); MEAN CORPUSCULAR HGB 34.4 pg (27.0-31.0); MEAN CORPUSCULAR HGB CONC 33.3 g/dl (33.0-37.0); MEAN PLATELET VOLUME 8.9 fl (9.6-12.3); MONO # 0.7 10*3/uL (0.1-1.0); MONO % 9.2 % (3.0-9.0); NEUT # 5.5 10*3/uL (2.3-7.9); NEUT % 67.5 % (47.0-73.0); PLATELET COUNT AUTOMATED 294 10*3/uL (130-400); RED BLOOD COUNT 4.33 10*6/uL (4.10-5.10); RED CELL DISTRI WIDTH 12.6 % (0-14.5); WHITE BLOOD COUNT 8.1 10*3/uL (4.8-10.8)
[2018-08-05 15:03] LABS: BUN 7 mg/dl (7-24); CHLORIDE 96 mmol/L (98-107); CREATININE 0.59 mg/dL (0.55-1.02); POTASSIUM 4.3 mmol/L (3.5-5.1); SODIUM 132 mmol/L (136-145)
--- NOTE | 2018-08-05 15:33 | NUR ---
MEDICATED WITH NORCO PER PRN ORDER FOR COMPLAINTS OF CHRONIC MID BACK PAIN. WILL MONITOR FOR EFFECTIVENESS.
[2018-08-05 16:00] VITALS: BP 160/114; BP 168/90
--- NOTE | 2018-08-05 17:00 | NUR ---
PT RESTING MORE COMFORTABLY, EARLIER NORCO EFFECTIVE.
--- NOTE | 2018-08-05 18:41 | NUR ---
DR SAUL NOTIFIED OF CT/CXR/AND LAB RESULTS PER HER INSTRUCTIONS.
[2018-08-05 20:00] VITALS: BP 136/78
--- NOTE | 2018-08-05 20:00 | NUR ---
Pt placed on 2L NC due to SpO2 89%-90%. SpO2 on 2L NC is 95%.
[2018-08-06] VITALS: BP 111/63
[2018-08-06 08:00] VITALS: BP 132/78
--- NOTE | 2018-08-06 09:00 | NUR ---
Data Sme in to talk to patient. Patient states lives at home alone with her family checking in on her. There are 0 steps in the home. Physician: Dr. Katy Fleming [facility]acy: [facility] Home health services: none Patient's level of ADLs: INDEPENDENT Patient has working utilities: yes DME: none Follow-up physician's appointment after d/c: she prefers to make her own follow up appt after discharge Does patient want to access PORTAL?: no Discharge plan discussed with patient. She lives at home alone with her family checking in on her. She is independent in her ADLs and ambulation. Discussed home health care services and she denies any home needs at this time. When medically stable she will be discharged to home. JUMA PEARCE
--- NOTE | 2018-08-06 09:02 | NUR ---
MEIDCATED WITH PRN NORCO FOR C/O BACK PAIN.
[2018-08-06 12:00] VITALS: BP 112/68
[2018-08-06 15:43] VITALS: BP 117/71
--- NOTE | 2018-08-06 16:18 | NUR ---
PATIENT ZAC STATED THAT I FORGOT TO GIVE HER A PAIN PILL. EDUCATED NEED ONLY. MEDICATED WITH PRN NORCO FOR C/O BACK PAIN.
[2018-08-06 20:00] VITALS: BP 152/75
--- NOTE | 2018-08-06 20:20 | NUR ---
PT RESTING IN BED. RESP-EASY AND REGULAR AT THIS TIME. HACKY NONPROD COUGH ON ASSESSMENT. BILATERAL HANDS RED, ARMS ECCYMOTIC. NO C/O AT THIS TIME. CALL LIGHT IN REACH. SEE SHIFT ASSESSMENT.
--- NOTE | 2018-08-06 21:10 | NUR ---
TOLERATED ROUTINE MED WITH NOPROBLEM. STATES PAIN MEDICATION WAS EFFECTIVE. CALL LIGHT IN REACH.
[2018-08-07] VITALS: BP 149/83
--- NOTE | 2018-08-07 07:00 | NUR ---
Pt is wearing 2L NC. Pt does not wear O2 at home. Will continue to decrease and get oxygen off. SpO2 96%.
[2018-08-07 09:12] VITALS: BP 146/78
--- NOTE | 2018-08-07 10:02 | NUR ---
MEDICATED WITH NORCO PER ORDER AND REQUEST FOR BACK PAIN.
--- NOTE | 2018-08-07 11:30 | NUR ---
Pt assesed for home O2. Pt did not need any O2. 1130 - at rest - RA - HR 85 - SpO2 93% - BP 138/78 1131 - walking - RA - HR 88 - SpO2 90% 1132 - walking - RA - HR 88 - SPO2 91% 1133 - walking - RA - HR 89 - Spo2 90% 1134 - walking - RA - HR 88 - SpO2 90% 1135 - walking - RA - HR 90 - SpO2 91% 1136 - walking - RA - HR 89 - SpO2 91% 1137 - at rest - RA - HR 86 - SpO2 92% Pt was placed back into bed on room air. Call light within reach.
[2018-08-07 11:44] VITALS: BP 139/103
[2018-08-07 11:54] VITALS: BP 138/78
--- NOTE | 2018-08-07 14:23 | NUR ---
PATIENT MEDICATED WITH PRN NORCOC PER ORDER AND REQUEST FOR BACK PAIN.
[2018-08-07 16:03] VITALS: BP 138/63
[2018-08-07 20:00] VITALS: BP 148/68; BP 180/99
--- NOTE | 2018-08-07 20:26 | NUR ---
PATIENT REQUESTING PAIN MEDICATION FOR BACK PAIN RATED 8/10 ON 0/10 SCALE. NORCO ADMINISTERED PRESCRIBED. WILL MONITOR FOR EFFECTIVENESS.
--- NOTE | 2018-08-07 21:26 | NUR ---
PATIENT STATES THAT BACK PAIN IS BETTER AFTER NORCO, RATES PAIN 4/10 ON 0/10 SCALE WILL CONTINUE TO MONITOR.
[2018-08-08] VITALS: BP 148/70
[2018-08-08] MEDS ORDERED: PREDNISONE5 MG PO (02:49)
[2018-08-08] MEDS ORDERED: DOXYCYCLINE100 M3 PO (02:49)
[2018-08-08] MEDS ORDERED: NEBULIZER (02:52)
[2018-08-08] MEDS ORDERED: Ipratropium Brom3 ML INH (02:52)
--- NOTE | 2018-08-08 05:57 | NUR ---
PATIENT REQUESTING PAIN MEDICATION FOR BACK PAIN RATED 7/10 ON 0/10 SCALE. NORCO ADMINISTERED PRESCRIBED. WILL MONITOR FOR EFFECTIVENESS.
[2018-08-08 08:15] VITALS: BP 180/100
[2018-08-08 10:52] VITALS: BP 144/82
--- NOTE | 2018-08-08 11:50 | NUR ---
Discharge instructions reviewed with patient/family. Patient receptive and verbalizes understanding. Follow-up care arranged. Written instructions given to patient/family. Patient was educated on new medications and follow up appointment with Dr. Fleming within one week post discharge. Patient ambulated from unit with all personal belongins accounted for. JENNI FRANCOIS
== END 2018-08-08 11:45 | disposition home or self-care (01) | DRG 189 ==
LOC: 4E 11:58
PROVIDERS: ADMIT Internal Medicine
DX: J96.01 Acute respiratory failure with hypoxia (principal); I10 Essential (primary) hypertension; J45.909 Unspecified asthma, uncomplicated; M19.90 Unspecified osteoarthritis, unspecified site; G89.29 Other chronic pain; I71.2 Thoracic aortic aneurysm, without rupture; M54.9 Dorsalgia, unspecified; Z87.440 Personal history of urinary (tract) infections; Z79.899 Other long term (current) drug therapy; Z79.890 Hormone replacement therapy

== ENCOUNTER → 2019-04-12 | Outpatient (CLI) | payer MEDICARE ==
[~2019-04-12] MED LIST changes: +ALLOPURINOL300 MG PO; +CARVEDILOL6.25 MG PO; +DOXYCYCLINE100 M3 PO; +HYDROCODONE-AC1 EAC2 PO; +Ipratropium Brom3 ML INH; +LEVOXYL88 MCG PO; +NEBULIZER; +PREDNISONE5 MG PO
[2019-04-12 18:35] LABS: BASO # 0.1 10*3/uL (0.0-0.1); BASO % 0.7 % (0.0-1.0); EOS # 0.2 10*3/uL (0.0-0.4); EOS % 2.7 % (1.0-4.0); HEMOGLOBIN 15.1 g/dl (12.0-16.0); LYMPH # 1.9 10*3/uL (1.3-4.4); LYMPH % 22.6 % (27.0-41.0); MEAN CELL VOLUME 102.6 fl (81.0-99.0); MEAN CORPUSCULAR HGB CONC 32.1 g/dl (33.0-37.0); MEAN PLATELET VOLUME 8.8 fl (9.6-12.3); MONO # 0.8 10*3/uL (0.1-1.0); MONO % 9.3 % (3.0-9.0); NEUT # 5.4 10*3/uL (2.3-7.9); NEUT % 64.1 % (47.0-73.0); PLATELET COUNT AUTOMATED 581 10*3/uL (130-400); RED BLOOD COUNT 4.58 10*6/uL (4.10-5.10); RED CELL DISTRI WIDTH 12.2 % (0-14.5); WHITE BLOOD COUNT 8.4 10*3/uL (4.8-10.8)
[2019-04-12 18:52] LABS: ALBUMIN 2.8 gm/dl (3.1-4.5); ALKALINE PHOSPHATASE 89 U/L (45-117); BUN 8 mg/dl (7-24); CHLORIDE 103 mmol/L (98-107); CHOLESTEROL 176 mg/dL (<200); CREATININE 0.57 mg/dL (0.55-1.02); FREE T4 1.54 ng/dl (0.76-1.46); HDL CHOLESTEROL 51 mg/dl (40-60); LDL CHOLESTEROL 83 mg/dL (9-159); POTASSIUM 4.1 mmol/L (3.5-5.1); SGOT/AST 17 IU/L (3-35); SGPT/ALT 16 U/L (12-78); SODIUM 136 mmol/L (136-145); TOTAL PROTEIN 7.1 gm/dL (6.4-8.2); TRIGLYCERIDES 208 mg/dl (<150); VLDL CHOLESTEROL 42 mg/dL (6-40)
[2019-04-12 18:58] LABS: THYROID STIM HORMONE (HS) 0.075 uIU/ml (0.358-4.75)
[2019-04-12 19:02] LABS: VITAMIN D, 25-HYDROXY 33.5 ng/mL (30-100)
== END | disposition home or self-care (01) ==
LOC: LAB 18:02
PROVIDERS: Internal Medicine
DX: Z13.1 Encounter for screening for diabetes mellitus (principal); I10 Essential (primary) hypertension; E78.2 Mixed hyperlipidemia; E55.9 Vitamin D deficiency, unspecified

== ENCOUNTER → 2019-10-18 | Outpatient (CLI) | payer MEDICARE ==
[2019-10-18 14:49] LABS: BUN 4 mg/dl (7-24); CHLORIDE 100 mmol/L (98-107); CHOLESTEROL 193 mg/dL (<200); FREE T4 1.86 ng/dl (0.76-1.46); HDL CHOLESTEROL 61 mg/dl (40-60); LDL CHOLESTEROL 96 mg/dL (9-159); POTASSIUM 4.1 mmol/L (3.5-5.1); SGOT/AST 18 IU/L (3-35); SGPT/ALT 12 U/L (12-78); SODIUM 136 mmol/L (136-145); TOTAL PROTEIN 6.9 gm/dL (6.4-8.2); TRIGLYCERIDES 181 mg/dl (<150); VLDL CHOLESTEROL 36 mg/dL (6-40)
[2019-10-18 14:51] LABS: BASO % 0.4 % (0.0-1.0); EOS # 0.1 10*3/uL (0.0-0.4); EOS % 1.1 % (1.0-4.0); LYMPH # 1.7 10*3/uL (1.3-4.4); LYMPH % 16.2 % (27.0-41.0); MEAN CELL VOLUME 97.5 fl (81.0-99.0); MEAN CORPUSCULAR HGB 32.2 pg (27.0-31.0); MEAN PLATELET VOLUME 9.8 fl (9.6-12.3); MONO # 0.9 10*3/uL (0.1-1.0); MONO % 8.8 % (3.0-9.0); NEUT # 7.6 10*3/uL (2.3-7.9); PLATELET COUNT AUTOMATED 346 10*3/uL (130-400); RED BLOOD COUNT 4.72 10*6/uL (4.10-5.10); RED CELL DISTRI WIDTH 12.8 % (0-14.5); WHITE BLOOD COUNT 10.4 10*3/uL (4.8-10.8)
[2019-10-18 14:54] LABS: ALKALINE PHOSPHATASE 71 U/L (45-117); THYROID STIM HORMONE (HS) 0.012 uIU/ml (0.358-4.75)
[2019-10-18 14:57] LABS: VITAMIN D, 25-HYDROXY 30.3 ng/mL (30-100)
== END | disposition home or self-care (01) ==
LOC: LAB 13:39
PROVIDERS: Internal Medicine
DX: Z00.00 Encounter for general adult medical examination without abnormal findings (principal); I10 Essential (primary) hypertension; E78.2 Mixed hyperlipidemia; E03.9 Hypothyroidism, unspecified; E55.9 Vitamin D deficiency, unspecified

== ENCOUNTER 2019-10-29 12:35 | Emergency (ER) | payer MEDICARE ==
[~2019-10-29] VITALS: Wt 61.2 kg
[2019-10-29 13:37] LABS: BASO % 0.6 % (0.0-1.0); EOS # 0.1 10*3/uL (0.0-0.4); EOS % 1.6 % (1.0-4.0); HEMATOCRIT 44.9 % (37.0-47.0); LYMPH # 1.5 10*3/uL (1.3-4.4); LYMPH % 21.2 % (27.0-41.0); MEAN CELL VOLUME 98.7 fl (81.0-99.0); MEAN CORPUSCULAR HGB 32.5 pg (27.0-31.0); MEAN PLATELET VOLUME 8.8 fl (9.6-12.3); MONO # 0.5 10*3/uL (0.1-1.0); MONO % 7.4 % (3.0-9.0); NEUT # 4.8 10*3/uL (2.3-7.9); NEUT % 68.9 % (47.0-73.0); PLATELET COUNT AUTOMATED 400 10*3/uL (130-400); RED BLOOD COUNT 4.55 10*6/uL (4.10-5.10); RED CELL DISTRI WIDTH 12.2 % (0-14.5)
[2019-10-29 13:52] LABS: ALBUMIN 2.9 gm/dl (3.1-4.5); ALKALINE PHOSPHATASE 63 U/L (45-117); BUN 7 mg/dl (7-24); CHLORIDE 103 mmol/L (98-107); CREATININE 0.45 mg/dL (0.55-1.02); LIPASE 95 U/L (73-393); POTASSIUM 4.2 mmol/L (3.5-5.1); SGOT/AST 17 IU/L (3-35); SGPT/ALT 13 U/L (12-78); SODIUM 135 mmol/L (136-145); TOTAL PROTEIN 6.5 gm/dL (6.4-8.2)
[2019-10-29 13:54] LABS: TROPONIN I < 0.015 ng/ml (<0.045)
[2019-10-29 14:52] LABS: BACTERIA 3+; BILIRUBIN NEGATIVE; BLOOD NEGATIVE (NEGATIVE); CLARITY CLEAR (CLEAR); COLOR YELLOW (YELLOW); GLUCOSE NEGATIVE; KETONE NEGATIVE; LEUKO ESTERASE TRACE (NEGATIVE); MUCOUS 1+; NITRITE NEGATIVE (NEGATIVE); PH 6.5 (5.0-9.0); SPECIFIC GRAVITY 1.015 (1.005-1.030); UROBILINOGEN 0.2 E.U./dl (0.2-1.0)
== END 2019-10-29 17:42 | disposition home or self-care (01) ==
LOC: ED 12:35
PROVIDERS: Nurse Practitioner Family
DX: R06.02 Shortness of breath (principal); F17.200 Nicotine dependence, unspecified, uncomplicated; Z79.899 Other long term (current) drug therapy

== ENCOUNTER → 2019-11-03 | Outpatient (CLI) | payer MEDICARE | END | disposition home or self-care (01) | LOC: US 10-24 11:00 | PROVIDERS: ATTEND Internal Medicine | DX: I65.23 Occlusion and stenosis of bilateral carotid arteries (principal) ==

== ENCOUNTER → 2019-11-10 | Outpatient (CLI) | payer MEDICARE | END | disposition home or self-care (01) | LOC: CARD 12:00 | PROVIDERS: ATTEND Internal Medicine | DX: I05.8 Other rheumatic mitral valve diseases (principal) ==

== ENCOUNTER → 2020-01-18 | Outpatient (CLI) | payer MEDICARE ==
[2020-01-18 12:43] LABS: CREATININE 0.57 mg/dL (0.55-1.02)
== END | disposition home or self-care (01) ==
LOC: CANSCHCLI → CT 01-17 11:00 → LAB 08:52 → CT 11:00
PROVIDERS: ATTEND Internal Medicine
DX: R06.02 Shortness of breath (principal); K44.9 Diaphragmatic hernia without obstruction or gangrene

== ENCOUNTER 2020-08-18 16:38 | Emergency (ER) | payer MEDICARE ==
[~2020-08-18] VITALS: Ht 160 cm; Wt 61.2 kg
[2020-08-18 17:48] LABS: BASO % 0.1 % (0.0-1.0); EOS % 0.4 % (1.0-4.0); HEMATOCRIT 40.6 % (37.0-47.0); LYMPH # 0.8 10*3/uL (1.3-4.4); LYMPH % 10.2 % (27.0-41.0); MEAN CELL VOLUME 93.1 fl (81.0-99.0); MEAN CORPUSCULAR HGB 32.1 pg (27.0-31.0); MEAN CORPUSCULAR HGB CONC 34.5 g/dl (33.0-37.0); MEAN PLATELET VOLUME 7.9 fl (9.6-12.3); MONO # 0.7 10*3/uL (0.1-1.0); MONO % 9.4 % (3.0-9.0); NEUT # 5.8 10*3/uL (2.3-7.9); NEUT % 79.4 % (47.0-73.0); PLATELET COUNT AUTOMATED 343 10*3/uL (130-400); RED BLOOD COUNT 4.36 10*6/uL (4.10-5.10); RED CELL DISTRI WIDTH 12.3 % (0-14.5); WHITE BLOOD COUNT 7.4 10*3/uL (4.8-10.8)
[2020-08-18 18:05] LABS: ALBUMIN 2.6 gm/dl (3.1-4.5); ALKALINE PHOSPHATASE 63 U/L (45-117); BUN 7 mg/dl (7-24); CHLORIDE 95 mmol/L (98-107); CREATININE 0.59 mg/dL (0.55-1.02); LIPASE 56 U/L (73-393); POTASSIUM 3.1 mmol/L (3.5-5.1); SGOT/AST 12 IU/L (3-35); SODIUM 130 mmol/L (136-145); TOTAL PROTEIN 6.2 gm/dL (6.4-8.2)
[2020-08-18 18:08] LABS: SGPT/ALT 11 U/L (12-78)
[2020-08-18 18:10] LABS: TROPONIN I < 0.015 ng/ml (<0.045)
[2020-08-18 18:29] LABS: BILIRUBIN Negative (Negative); BLOOD Negative (Negative); CLARITY Cloudy (Clear); COLOR Yellow (Yellow); GLUCOSE Negative (Negative); KETONE Trace (Negative); LEUKO ESTERASE 2+ (Negative); NITRITE Negative (Negative)
[2020-08-18 18:52] LABS: BACTERIA 2+; EPITHELIAL CELLS 21-30; WBC 21-30 wbc/hpf (0-5)
== END 2020-08-18 19:41 | disposition home or self-care (01) ==
LOC: ED 16:38
PROVIDERS: Emergency Medicine
DX: E87.6 Hypokalemia (principal); E87.1 Hypo-osmolality and hyponatremia; R10.9 Unspecified abdominal pain; I10 Essential (primary) hypertension; M19.90 Unspecified osteoarthritis, unspecified site; I73.9 Peripheral vascular disease, unspecified; J45.909 Unspecified asthma, uncomplicated; Z79.899 Other long term (current) drug therapy; Z79.2 Long term (current) use of antibiotics

== ENCOUNTER → 2021-01-04 | Outpatient (CLI) | payer MEDICARE | END | disposition home or self-care (01) | LOC: CT 12:58 | PROVIDERS: ATTEND Internal Medicine | DX: I71.4 Abdominal aortic aneurysm, without rupture (principal); R06.02 Shortness of breath; I25.10 Atherosclerotic heart disease of native coronary artery without angina pectoris; K44.9 Diaphragmatic hernia without obstruction or gangrene ==